=== PATIENT | male | born 1950 | race African-American/Black ===

== ENCOUNTER 2020-04-15 13:03 | Inpatient (IN) | payer OTHER ==
[~2020-04-15] VITALS: Ht 175.3 cm; Wt 68.0 kg
--- NOTE | ~2020-04-15 | EMS ---
[place] [address] EMS Patient Care Report Name: HANNA PARRA III [id number] Admission: 04/15/20 Attend Phys: Discharge: Date of : 52 Report #: [id number] THIS REPORT FOR: //name// Report Transmitted: 04/15/2020 14:23 EMS Care Summary [place], [place]/[facility] Incident [id number] @ 04/15/2020 12:35 Incident Location [address] [address] Patient HANNA PARRA Male, 69 Years 1950 Patient Address [address] [place] [address] Patient History None Reported, Patient Allergies No known allergies, Patient Medications None Reported, Chief Complaint Dizziness Disposition Transported No Lights/[place] Dispatch Reason Sick Person Transported To [place] [facility] Narrative Initially dispatched with [facility] for a sick person. Upon EMS arrival patient was found sitting on his couch, showing no obvious signs of distress, CAOx4. Patient reports having an onset of dizziness two weeks ago. [place] [address] EMS Patient Care Report Name: HANNA PARRA III Room #: REG DELFINO Osborne#: [id number] Admission: 04/15/20 Attend Phys: Discharge: Date of : 52 Report #: [id number] any pain. Patient stated that he had fallen a couple of times due to the dizziness and that the dizziness has not improved or worsened since onset. Field stroke exam was negative for deficits. Patient was assisted onto the stretcher, secured, and loaded into the ambulance. He was transported to [facility] without incident. Full report was given to RN prior to signing this document. Initial Vitals @12:48P: 72,R: 18,BP: 150/94,Pain: 0/10,GCS: 15,Glucose: 133,SpO2: 100,Revised Trauma: 12, @12:56P: 72,R: 18,BP: 168/98,GCS: 15,SpO2: 98,Revised Trauma: 12, Assessments @12:42MENTAL:No Abnormalities,SKIN:No Abnormalities,HEENT:Head/Face: No Abnormalities,Eyes: No Abnormalities,Neck/Airway: No Abnormalities,LUNG SOUNDS:ABDOMEN:PELVIS//GI:EXTREMITIES:Left Arm: No Abnormalities,Right Arm: No Abnormalities,Left Leg: No Abnormalities,Right Leg: No Abnormalities,PULSE:NEURO:Other, Impression Dizziness Procedures @12:42ALS AssessmentResponse: UnchangedSucceeded Timeline 12:32,Call Received 12:32,Dispatch Notified 12:35,Dispatched 12:35,En Route 12:39,On Scene 12:42,At Patient 12:42,ALS Assessment,Response: UnchangedSucceeded, 12:48,BP: 150/94 M,PULSE: 72,RR: 18 R,SPO2: 100 Ox,ETCO2: ,B,PAIN: 0,GCS: 15, 12:51,Depart Scene 12:56,BP: 168/98 M,PULSE: 72,RR: 18 R,SPO2: 98 Ox,ETCO2: ,BG: ,PAIN: ,GCS: 15, 12:57,At Destination 13:12,Call Closed Disclaimer v1.1 Copyright 2020 [employer] This EMS Care Summary contains data elements from the applicable legal record (which may be displayed differently). It is designed to provide pertinent information for the following purposes: continuity of care, clinical quality, and state data reporting. The complete legal record is available to ED staff [address] [address] EMS Patient Care Report Name: HANNA PARRA [facility] Room #: [facility].Susan#: [id number] Admission: 04/15/20 Attend Phys: Discharge: Date of : 52 Report #: [id number] and administrators of the receiving hospital in ES's Patient Tracker. All data is provided "as is."
[~2020-04-15 13:03] MED LIST: NOHOMEMEDICATIONS
[2020-04-15 13:04] VITALS: BP 129/92
[2020-04-15 13:47] LABS: HEMATOCRIT 41.1 % (42.0-52.0); HEMOGLOBIN 13.8 gm/dL (14.0-18.0); MCH 30.7 pg (26.0-34.0); MCHC 33.5 g/dL (28.0-37.0); MCV 91.6 fL (80.0-100.0); PLATELET COUNT 134 thou/uL (150-400); RBC 4.48 mil/uL (4.50-6.00); RDW 15.4 % (10.5-14.5); WBC 3.6 thou/uL (4.0-11.0)
[2020-04-15 13:59] LABS: ANION GAP 14 mmol/L (7-16); BUN 19 mg/dL (7-18); CALCIUM 8.8 mg/dL (8.5-10.1); CHLORIDE 92 mmol/L (98-107); CO2 23 mmol/L (21-32); GLUCOSE 123 mg/dL (74-106); POTASSIUM 3.2 mmol/L (3.5-5.1); SODIUM 129 mmol/L (136-145)
[2020-04-15 14:09] LABS: ALBUMIN 2.4 g/dL (3.4-5.0); MAGNESIUM 1.6 mg/dL (1.8-2.4); SGOT 70 U/L (15-37); SGPT 47 U/L (30-65); TOTAL BILIRUBIN 0.7 mg/dL (0.2-1.0); TOTAL PROTEIN 6.8 g/dL (6.4-8.2); TROPONIN-I <0.06 ng/mL (<0.06)
[2020-04-15 14:17] LABS: ABSOLUTE NEUTROPHILS 1.7 thou/uL (1.4-8.2); ANISOCYTOSIS 1+
[2020-04-15 17:42] LABS: URINE BLOOD NEGATIVE (Negative); URINE CLARITY CLEAR; URINE COLOR YELLOW; URINE GLUCOSE-RANDOM* NEGATIVE (Negative); URINE KETONES 1+ (Negative); URINE LEUKOCYTES-REFLEX NEGATIVE (Negative); URINE NITRITE-REFLEX NEGATIVE (Negative); URINE PROTEIN (DIPSTICK) TRACE (Negative); URINE SPECIFIC GRAVITY >= 1.030 (1.005-1.035)
[2020-04-15 17:46] LABS: ICTOTEST (BILI CONFIRMATORY) Negative (Negative); URINE BILIRUBIN NEGATIVE (Negative)
[2020-04-15 19:02] LABS: FOLIC ACID 8.4 ng/mL (8.6-58.9)
[2020-04-15 20:27] VITALS: BP 113/58
--- NOTE | 2020-04-15 20:31 | NUR ---
CALLED UNIT TO GIVE REPORT.PHONE RINGING WITH NO ANSWER
[2020-04-15 20:38] VITALS: BP 129/80
[2020-04-15 20:59] VITALS: BP 148/76
--- NOTE | 2020-04-15 22:48 | NUR ---
PATIENT ARRIVED VIA CART WITH RN AT 2044 TO ROOM 455. ALERT AND ORIENTED X4. PATIENT SCOOTED HIMSELF FROM CART TO BED W/O ASSIST. IVF STARTED PER ORDER. NO WOUNDS NOTED. PATIENT STATES HE IS A SMOKER AND WOULD LIKE TO STOP. PATIENT STATES HE DOES DRINK AT TIMES, HOWEVER, THIS INFORMATION CHANGES WITH DIFFERENT QUESTIONS. WILL MONITOR.
--- NOTE | 2020-04-16 03:21 | NUR ---
PATIENT WAS A NEW ADMIT FROM THE ED AT 2044 ON 04/15/2020 TO THIS NURSE. COMPUTER DID NOT REGISTER INFORMATION USUAL. BOTH SUICIDE AND NUTRITION QUESTIONS ANSWERED. REASSESSMENT WAS DONE PER SHIFT INFORMATION, NOT ADMIT FORMAT USUAL DUE TO COMPUTER GLITCH. CHARGE NURSE AND THERMAL INTELLIGENCE ANALYST NOTIFIED. PATIENT UP WITH SBA TO BATHROOM. IVF INFUSING PER ORDER. NO SKIN ISSUES. RESTING QUIETLY AT TIME OF NOTE. WILL MONITOR.
[2020-04-16 03:24] VITALS: BP 161/79
[2020-04-16 06:28] LABS: CALCIUM 8.2 mg/dL (8.5-10.1); CREATININE 0.9 mg/dL (0.7-1.3); MAGNESIUM 1.8 mg/dL (1.8-2.4); POTASSIUM 3.5 mmol/L (3.5-5.1)
[2020-04-16 07:12] VITALS: BP 153/77
[2020-04-16 16:16] VITALS: BP 146/78
--- NOTE | 2020-04-16 19:26 | NUR ---
Assumed pt care at 7am.Pt in bed resting without c/o.Assessment completed.vss. Pt tolerated meds and diet.Family called and updates given.Later this afternoon,drt came and requested to be insurance salesperson per pt approval.Name entered into computer so also designated visitor.No verbal c/o.Will continue to monitor.
[2020-04-16 19:52] VITALS: BP 142/85
--- NOTE | 2020-04-17 02:11 | NUR ---
PATIENT WAS ASLEEP AT SHIFT CHANGE AND THIS NURSE AWAKENED HIM FOR EVENING MEDICATION. HE HAS SLEPT THROUGHOUT THE NIGHT. DENIES PAIN. COOPERATIVE WITH CARE. REMAINS ON TELE WITH SINUS RHYTHM. COVID NEGATIVE FROM TESTING ON AM SHIFT. WILL MONITOR.
[2020-04-17 05:54] LABS: CALCIUM 8.3 mg/dL (8.5-10.1); CREATININE 0.9 mg/dL (0.7-1.3); PHOSPHORUS 2.4 mg/dL (2.5-4.9); POTASSIUM 3.9 mmol/L (3.5-5.1)
[2020-04-17 07:52] VITALS: BP 174/97
[2020-04-17 16:00] VITALS: BP 189/96
[2020-04-17 19:54] VITALS: BP 173/92
[2020-04-18 03:13] VITALS: BP 157/76
[2020-04-18 05:55] LABS: CALCIUM 7.7 mg/dL (8.5-10.1); CREATININE 0.8 mg/dL (0.7-1.3); PHOSPHORUS 2.2 mg/dL (2.5-4.9); POTASSIUM 3.5 mmol/L (3.5-5.1)
[2020-04-18 07:55] VITALS: BP 188/86
--- NOTE | 2020-04-18 08:48 | NUR ---
Assumed pt care at 1900. A/OX4, VSS. Denies pain on assessment. Up with SBA. No anxiety episodes noted. IVF infusing via LUE IV w/o any problems. Fall precautions in place,calls appropriately for help.
[2020-04-18 16:33] VITALS: BP 179/82
--- NOTE | 2020-04-18 17:00 | NUR ---
PT ASSESSED AT START OF SHIFT. SLEEPY THIS AM BUT MORE AWAKE LATER IN DAY. UP TO THE BATHROOM FOR BM THIS AFTERNOON W/ SOME WEAKNESS. EATING AND DRINKING WELL. NO C/O PAIN.
[2020-04-18 19:33] VITALS: BP 187/85
[2020-04-19 06:37] LABS: CALCIUM 8.4 mg/dL (8.5-10.1); CREATININE 0.9 mg/dL (0.7-1.3); POTASSIUM 4.1 mmol/L (3.5-5.1)
[2020-04-19 07:12] VITALS: BP 178/92
--- NOTE | 2020-04-19 07:26 | EKG ---
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 : 1950 Requested By: Tea Tesfaye Order Number: [id number] MD: Onel Antonio Measurements Intervals [place] Rate: 75 P: 78 RI: 46 QRS: 65 QRSD: 83 T: 37 QT: 408 QTc: 456 Interpretive Statements Sinus rhythm Atrial premature complexes Short RI interval Anteroseptal infarct, age indeterminate Baseline wander in lead(s) V3 No previous ECG available for comparison Electronically Signed On 04-19-2020 7:26:36 CDT by Onel Antonio [email or web address] <ELECTRONICALLY SIGNED> By: Onel Antonio MD, FACC 04/19/20 0726 1432 1432 Onel Antonio MD, [facility] /EPI
[2020-04-19] MEDS ORDERED: FOLIC ACID1 MG PO (10:03)
[2020-04-19] MEDS ORDERED: VITAMIN B-1100 M2 PO (10:04)
[2020-04-19] MEDS ORDERED: NORVASC 2.5 MG2.5 M1 PO (10:06)
--- NOTE | 2020-04-19 10:15 | NUR ---
ASSUMED CARE AT 0700. PT IS ALERT AND ORIENTED. VSSA/RA. NSR ON TELE. TOLERATING DIET. PIV INFUSING WITHOUT ISSUES. NO COMPLAINTS AT THIS TIME. FALL PRECAUTIONS IN PLACE. CALL LIGHT IN REACH. WILL CONTINUE TO MONITOR.
[2020-04-19 12:53] VITALS: BP 178/92
--- NOTE | 2020-04-19 13:47 | NUR ---
PT DISCHARGED AT THIS TIME. HE IS ALERT AND ORIENTED AND VERBALIZES UNDERSTANDING OF DC PAPERWORK, NEW MEDICATIONS AND APPROP FOLLOW UP. SCRIPTS GIVEN TO PT WITH COPIES PLACED IN CHART. PIV AND TELE MONITOR REMOVED WITHOUT ISSUES. ACCOMPANIED OUT VIA WHEELCHAIR TO RIDE.
== END 2020-04-19 14:19 | disposition home or self-care (01) | DRG 70 ==
LOC: ER 13:03 → 4W 19:09 → EROBS 19:09 → 4W 20:36
PROVIDERS: Nurse Practitioner Family; ADMIT Hospitalist; ATTEND Hospitalist
DX: G93.40 Encephalopathy, unspecified (principal); E43 Unspecified severe protein-calorie malnutrition; E87.1 Hypo-osmolality and hyponatremia; M62.84 Sarcopenia; F10.20 Alcohol dependence, uncomplicated; R27.0 Ataxia, unspecified; Z60.2 Problems related to living alone; F30.8 Other manic episodes; F17.210 Nicotine dependence, cigarettes, uncomplicated; E87.6 Hypokalemia; Z20.828 Contact with and (suspected) exposure to other viral communicable diseases; E83.42 Hypomagnesemia; Z68.22 Body mass index [BMI] 22.0-22.9, adult; Z79.899 Other long term (current) drug therapy; I10 Essential (primary) hypertension; R29.6 Repeated falls; Y90.9 Presence of alcohol in blood, level not specified
CPT/HCPCS: 10045

== ENCOUNTER 2020-11-16 11:21 | Emergency (ER) | payer OTHER ==
[~2020-11-16] VITALS: Ht 175.3 cm; Wt 68.0 kg
[~2020-11-16 11:21] MED LIST changes: +FOLIC ACID1 MG PO; +NORVASC 2.5 MG2.5 M1 PO; +VITAMIN B-1100 M2 PO
[2020-11-16 11:25] VITALS: BP 103/61
[2020-11-16] MEDS ORDERED: VALTREX1000 MG PO (11:56)
[2020-11-16] MEDS ORDERED: HYDROCODON-ACE1 EAC7 PO (11:56)
== END 2020-11-16 12:16 | disposition home or self-care (01) ==
LOC: ER 11:21
DX: B02.9 Zoster without complications (principal); Z79.899 Other long term (current) drug therapy

== ENCOUNTER 2021-08-22 11:45 | Inpatient (IN) | payer OTHER ==
[~2021-08-22] VITALS: Ht 175.3 cm; Wt 60.3 kg
--- NOTE | ~2021-08-22 | O ---
[facility] [place] [address] OPERATIVE REPORT Name: HANNA PARRA III Room #: 363-P ADM IN M.R.#: [id number] Admission: 08/22/21 Attend Phys: Juan Malave MD Discharge: Date of : 52 Report #: [id number] THIS REPORT FOR: cc: FAM - No family physician/PCP FAM - No family physician/PCP Khalif Alfredo MD ~ DATE OF SERVICE: 08/23/2021 PREOPERATIVE DIAGNOSIS: Perirectal abscess. POSTOPERATIVE DIAGNOSIS: Perirectal abscess. OPERATION: Incision and drainage of ischiorectal abscess. SURGEON: Khalif Alfredo MD ANESTHESIA: General. ESTIMATED BLOOD LOSS: Minimal. SPECIMENS: None. DRAIN: Elizabeth drain. DESCRIPTION OF PROCEDURE: After informed consent was obtained, the patient was brought to the operating room and placed supine. SCDs were placed and working, preoperative antibiotics were administered, general anesthesia was induced. The patient was placed in the dorsal lithotomy position. The area was then prepped and draped in the usual sterile fashion. A timeout was performed. Procedure was then initiated. He had area of fluctuance in the right perianal area. This was approximately 2 cm from the anal verge. There was already an opening. This was extended approximately 1 cm. Pus was expressed and suctioned. There was a large potential space underneath measuring approximately 7 x 6 cm. This tracked anteriorly toward the midline in the perineum. I then made a counterincision measuring 1 cm. The area was then copiously irrigated with normal saline. I placed a [place] drain through these 2 incisions and tied them together with a nylon suture. Sterile dressings were then applied. COMPLICATIONS: None. [facility] [address] [place] [address] OPERATIVE REPORT Name: HANNA PARRA BIANCA Room #: 363-P [facility] IN .R.#: [id number] Admission: 08/22/21 Attend Phys: Juan Malave MD Discharge: Date of : 52 Report #: [id number] DISPOSITION: The patient was taken to recovery in satisfactory condition. By: 0939 [id number] Khalif Alfredo MD /gay
[~2021-08-22 11:45] MED LIST changes: +HYDROCODON-ACE1 EAC7 PO; +VALTREX1000 MG PO
[2021-08-22 12:21] VITALS: BP 156/68
[2021-08-22 13:55] LABS: ABSOLUTE NEUTROPHILS 8.1 thou/uL (1.4-8.2); BASOPHILS 0.2 % (0.0-2.0); EOSINOPHILS 0.4 % (0.0-3.0); HEMATOCRIT 39.7 % (42.0-52.0); HEMOGLOBIN 13.2 gm/dL (14.0-18.0); MCHC 33.3 g/dL (28.0-37.0); MONOCYTES 12.5 % (1.0-8.0); PLATELET COUNT 388 thou/uL (150-400); POLYS 72.9 % (36.0-66.0); RBC 4.56 mil/uL (4.50-6.00); RDW 13.7 % (10.5-14.5); WBC 11.1 thou/uL (4.0-11.0)
[2021-08-22 14:05] LABS: CALCIUM 8.7 mg/dL (8.5-10.1); CREATININE 1.3 mg/dL (0.7-1.3)
[2021-08-22 14:19] LABS: ALBUMIN 1.9 g/dL (3.4-5.0); TOTAL BILIRUBIN 0.6 mg/dL (0.2-1.0); TOTAL PROTEIN 7.1 g/dL (6.4-8.2)
[2021-08-22 19:23] VITALS: BP 126/73
--- NOTE | 2021-08-22 19:42 | NUR ---
PT DAUGHTER PEREZ PARRA [phone]
[2021-08-22 20:36] LABS: MAGNESIUM 2.1 mg/dL (1.8-2.4); PHOSPHORUS 4.7 mg/dL (2.5-4.9)
[2021-08-22 23:44] VITALS: BP 95/51
[2021-08-22 23:57] VITALS: BP 123/80
[2021-08-23] VITALS (11 sets, daily range): BP systolic 110–179; BP diastolic 45–94
--- NOTE | 2021-08-23 02:59 | NUR ---
PT ADMITTED TO RM 363 FROM THE ER AROUND 2350. ALERT AND ORIENTED X4. VSS AFEBRILE. AFIB ON MONITOR RATE CONTROLLED 60-80S. UNLABORED ON RA. SATS WNL, PICTURES OF DRAINING ABCESS SITES TAKEN. 2 SMALL HOLES ON RIGHT CLAUDIA- RECTAL AREA NOTED DRAINING MODERATE AMTS PINK PURULENT DRAINAGE. INSTRUCTED PT ON FALL PRECAUTIONS. PT STATED HIS LAST DRINK WAS 1 WEEK AGO. HE STATED HE ONLY DRINKS 1 BEER PER DAY AND ANTHONY 2X/ WK. NO S/S DT'S NOTED. CONSENT SIGNED FOR i AND D TOMORROW.
[2021-08-23 03:59] LABS: HEMATOCRIT 32.8 % (42.0-52.0); HEMOGLOBIN 11.3 gm/dL (14.0-18.0); MCH 29.8 pg (26.0-34.0); MCHC 34.3 g/dL (28.0-37.0); RBC 3.77 mil/uL (4.50-6.00); RDW 13.6 % (10.5-14.5); WBC 9.8 thou/uL (4.0-11.0)
[2021-08-23 04:14] LABS: CALCIUM 7.5 mg/dL (8.5-10.1); POTASSIUM 3.4 mmol/L (3.5-5.1)
[2021-08-23 07:08] LABS: GLYCOHEMOGLOBIN (HGB A1C) 6.5 % (4.8-5.6)
--- NOTE | 2021-08-23 07:25 | EKG ---
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: ed : 1950 Requested By: Madi Barnes Order Number: [id number] MD: Kin Adam Measurements Intervals [place] Rate: 140 P: OK: QRS: 76 QRSD: 87 T: 67 QT: 319 QTc: 487 Interpretive Statements Atrial fibrillation Consider left ventricular hypertrophy Anterior Q waves, possibly due to LVH Compared to ECG 04/15/2020 14:32:15 Left ventricular hypertrophy now present Q waves now present Sinus rhythm no longer present Atrial premature complex(es) no longer present Short OK interval no longer present Myocardial infarct finding no longer present Electronically Signed On 08-23-2021 7:25:10 [employer] by Kin Adam [email or web address] <ELECTRONICALLY SIGNED> By: Kin Adam MD, FAC 08/23/21 0725 1526 1526 Kin Adam MD, [facility] /EPI
--- NOTE | 2021-08-23 08:53 | NUR ---
PT CONVERTED TO SR WITH PACS. VSS AFEBRILE. NS AT 80 INFUSING BP BETTER TONIGHT. SATS WNL ON RA. NO S/S DTS TONIGHT. CIWA NEGATIVE SO FAR SCORE 0. SIDE RAILS PADDED. PT NPO AFTER MN FOR I&D OF CLAUDIA-RECTAL ABCESS.
--- NOTE | 2021-08-23 09:33 | EKG ---
[place] [address] [address] [facility] [place] [address] ELECTROCARDIOGRAM REPORT Name: HANNA PARRA [facility] Room #: 363-P ADM IN M.R.#: [id number] Admission: 08/22/21 Attend Phys: Juan Malave MD Discharge: Date of : 52 Report #: [id number] [facility] Test Date: 2021-08-23 Test Time: 08:11:54 Pat Name: HANNA PARRA Department: Room: 363 P Gender: M [employer] Superintendent: SANDRA : 1950 Requested By: Katie Márquez Order Number: [id number] : Kin Adam Measurements Intervals [place] Rate: 92 P: 118 [place]: 146 QRS: 75 QRSD: 94 T: 60 QT: 416 QTc: 515 Interpretive Statements Sinus rhythm Ventricular premature complex Consider left ventricular hypertrophy Compared to ECG 08/22/2021 15:26:22 Ventricular premature complex(es) now present Atrial fibrillation no longer present Q waves no longer present Electronically Signed On 08-23-2021 9:33:00 [employer] by Kin Adam [email or web address] <ELECTRONICALLY SIGNED> By: Kin Adam MD, [facility] 08/23/21932 0 0 Kin Adam MD, [facility] /EPI
--- NOTE | 2021-08-23 11:44 | 2DMMODE ---
[facility] [place] [address] 2 D/M-MODE ECHOCARDIOGRAM Name: HANNA PARRA [facility] Room #: 363-P ADM IN M.R.#: [id number] Admission: 08/22/21 Attend Phys: Juan Malave MD Discharge: Date of : 52 Report #: [id number] THIS REPORT FOR: cc: ROSEY - Chel family physician/PCP ROSEY - Chel family physician/PCP Kin Adam MD [facility] ~ APPROVED REPORT Study performed: 08/23/2021 10:45:03 EXAM: Comprehensive 2D, Doppler, and color-flow Echocardiogram Patient Location: Bedside Room #: 363 Status: routine BSA: 1.70 HR: 71 bpm BP: 136/84 mmHg Rhythm: NSR Other Information Study Quality: Good Indications Atrial Fibrillation Dyspnea 2D Dimensions RVDd: 34.92 mm IVSd: 9.68 (7-11mm) LVOT Diam: 20.83 (18-24mm) LVDd: 44.93 mm PWd: 9.95 (7-11mm) Ascending Ao: 31.90 (22-36mm) LVDs: 28.09 (25-40mm) Left Atrium: 32.98 (27-40mm) Aortic Root: 36.68 mm IVC: 18.00 mm Volumes Left Atrial Volume (Systole) Single Plane 4CH: 66.62 mL Single Plane 2CH: 50.47 mL LA ESV Index: 39.00 mL/m2 Aortic Valve AoV Peak Ramin.: 0.90 m/s AO Peak Gr.: 3.21 mmHg LVOT Max P.84 mmHg LVOT Max V: 0.68 m/s [facility] [address] [address] 2 D/M-MODE ECHOCARDIOGRAM Name: HANNA PARRA III Room #: 363-P [facility] IN Anish.#: [id number] Admission: 08/22/21 Attend Phys: Jaun Malave MD Discharge: Date of : 52 Report #: [id number] ARASELI Vmax: 2.58 cm2 Mitral Valve E/A Ratio: 1.5 MV Decel. Time: 129.35 ms MV E Max Ramin.: 0.77 m/s MV A Ramin.: 0.51 m/s MV PHT: 37.51 ms IVRT: 115.34 ms Pulmonary Valve PV Peak Ramin.: 0.64 m/s PV Peak Gr.: 1.64 mmHg Tricuspid Valve TR Peak Ramin.: 2.64 m/s TR Peak Gr.: 27.83 mmHg PA Pressure: 33.00 mmHg Left Ventricle The left ventricle is normal size. There is normal LV segmental wall motion. There is normal left ventricular wall thickness. Left ventricular systolic function is normal. The left ventricular ejection fraction is within the normal range. LVEF is 55-60%. The left ventricular diastolic function is normal. Right Ventricle The right ventricle is normal size. The right ventricular systolic function is normal. Atria The left atrium size is normal. The right atrium size is normal. Aortic Valve The aortic valve is normal in structure. No aortic regurgitation is present. There is no aortic valvular stenosis. Mitral Valve The mitral valve is normal in structure. Trace mitral regurgitation. No evidence of mitral valve stenosis. Tricuspid Valve The tricuspid valve is normal in structure. There is mild tricuspid regurgitation. Estimated PAP 33 mmHg. There is mild pulmonary hypertension. [facility] [address] [place] [address] 2 D/M-MODE ECHOCARDIOGRAM Name: HANNA PARRA [facility] Room #: 363-P ADM IN M.R.#: [id number] Admission: 08/22/21 Attend Phys: Juan Malave MD Discharge: Date of : 52 Report #: [id number] Pulmonic Valve The pulmonary valve is normal in structure. There is no pulmonic valvular regurgitation. Great Vessels The aortic root is normal in size. IVC is normal in size and collapses >50% with inspiration. Pericardium There is no pericardial effusion. <Conclusion> Normal left atrial size/wall thickness central ejection fraction of 60% Normal right ventricle size/function Normal atrial size Normal aortic valve structure and function Trace mitral valve insufficiency Mild tricuspid valve insufficiency Pulmonary systolic pressure estimated 33 mmHg No pericardial effusion Normal aortic root size <ELECTRONICALLY SIGNED> By: Kin Adam MD, [facility] 08/23/21 1144 1144 1144 Kin Adam MD, [facility] /INF
--- NOTE | 2021-08-23 19:01 | NUR ---
Pt A &O x4. Pt VS stable. PT received medications as ordered. Pt had surgery this shift. PT has dressing in place to buttox noted. This RN had to re enforce dressing. Pt had BM this shift. PT turns self in bed. Pt on CIWA. Pt is room air. PT is able to make needs known
--- NOTE | 2021-08-23 21:55 | NUR ---
PT RESTING IN BED IN THE DARK WITH BLANKET OVER HEAD. FAMILY VISITED. LUNGS CRACKLES. IVF INTACT. PT STATED HE REPOSITIONS SELF. RECTAL DRESSING INTACT. PT DECLINED HS SNACK. BED ALARM ON.
[2021-08-24 04:18] VITALS: BP 177/81
[2021-08-24 05:00] VITALS: BP 167/66
[2021-08-24 06:14] LABS: CALCIUM 7.6 mg/dL (8.5-10.1); CREATININE 0.7 mg/dL (0.7-1.3); POTASSIUM 4.1 mmol/L (3.5-5.1)
[2021-08-24 07:58] VITALS: BP 162/71
[2021-08-24 12:08] VITALS: BP 180/81
--- NOTE | 2021-08-24 13:04 | HC ---
[facility] [place] [address] CONSULTATION Name: AHNNA PARRA III Room #: 363-P ADM IN M.R.#: [id number] Admission: 08/22/21 Attend Phys: Juan Malave MD Discharge: Date of : 52 Report #: [id number] THIS REPORT FOR: cc: FAM - No family physician/PCP FAM - No family physician/PCP Aron Khan MD ~ DATE OF SERVICE: 08/23/2021 INFECTIOUS DISEASE CONSULTATION ATTENDING PHYSICIAN: Dr. Malave. REASON FOR EVALUATION: Perirectal abscess. HISTORY OF PRESENT ILLNESS: Chart reviewed, the patient examined. This is a 71-year-old without ongoing chronic illness except history of ethanol excess. He presented to the Emergency Room with complaints of generalized myalgias, some degree of dyspnea. He had pain associated with the perineal site, noted some drainage. It is not clear if he had any significant fevers or chills. Initial chest x-ray was otherwise unremarkable. ProBNP elevated at 1124, his albumin was 1.9. Lactic acid 2.7, on repeat was 1.4. Procalcitonin of 1.53. Coronavirus testing was negative. CT of the pelvis was done, which showed focal inflammatory thickening and stranding in the peritoneum. There was question of a perirectal abscess. He was seen by surgery and tentatively scheduled to undergo operative debridement; however, was found to be in atrial fibrillation, pending cardiology recommendations. Initial blood cultures collected at the time of admission are sterile thus far. He was empirically placed on combination antibiotics with Flagyl and Zosyn. ALLERGIES: None known. CURRENT MEDICATIONS: Include multivitamins, thiamine, metoprolol, metronidazole, Zosyn, enoxaparin, lorazepam. PAST MEDICAL HISTORY: As described above, may have a degree of underlying COPD, severe malnutrition. SOCIAL HISTORY: Former smoker. Regular ethanol use. No illicit drug use. FAMILY HISTORY: Noncontributory. REVIEW OF SYSTEMS: Otherwise unremarkable. PHYSICAL EXAMINATION: GENERAL: Appears chronically ill and undernourished. He is mildly encephalopathic, mild to moderate distress. [facility] [address] [place] [address] CONSULTATION Name: HANNA PARRA [facility] Room #: 363-P [facility] IN [facility]#: [id number] Admission: 08/22/21 Attend Phys: Juan Malave MD Discharge: Date of : 52 Report #: [id number] VITAL SIGNS: Temperature 97.7, pulse 61, respirations 18, blood pressure 136/84. SKIN: Warm, dry, no rashes. HEENT: Normocephalic. Extraocular muscles intact. NECK: Supple. LUNGS: Diminished breath sounds. HEART: Irregularly irregular. ABDOMEN: Slightly distended, somewhat firm, nontender. EXTREMITIES: No cyanosis. GENITOURINARY AND RECTAL: Deferred. LABORATORY DATA: Cultures sterile thus far. Electrolytes: Sodium 134, potassium 3.4, chloride 99, bicarbonate is 27, anion gap of 8, BUN and creatinine 23 and 1.0. Estimated GFR of 90. CBC 9.8, H and H 11.3 and 13.8, platelets of 319. IMAGING: As noted above. ASSESSMENT AND PLAN: Perirectal abscess. The patient is profoundly malnourished, likely significant ethanol abuse and at least intermittent atrial fibrillation. We will continue empiric antimicrobial therapy. At this point, it is difficult to ascertain whether it is primarily skin related with inside-out progression or more intestinal related. At this point, he is not overtly toxic, although would be concerned about possible withdrawal in this patient. Try to optimize his nutritional status to the extent possible, add incentive spirometry. <ELECTRONICALLY SIGNED> By: Aron Khan MD 08/24/21 1304 0959 1052 Aron Khan MD /nt
[2021-08-24 14:30] VITALS: BP 170/62
--- NOTE | 2021-08-24 14:43 | NUR ---
INITIAL ASSESSMENT: Received consult for discharge planning. PRIETO reviewed chart and spoke with nursing and attending physician. Pt was admitted from home due to perirectal abscess. Pt had I&D yesterday. Pt is on IV abx. Wound care consulted. PRIETO met with pt at bedside. Introduced role of SW. Pt is alert/orientated x 4. Pt reports he lives at home with family. Prior to admission, pt was independent with ADLs. No use of DME. No hx of services or post-acute placement. Pt does not currently have a PCP. Therapy evals ordered today. Plan is for pt to discharge home when medically stable. PRIETO is following to assist as needed with discharge planning.
[2021-08-24 19:09] VITALS: BP 141/64
--- NOTE | 2021-08-25 03:39 | NUR ---
Patient making progress towards outcome goals. Ruma rectal tenderness I and D site still with drain, difficult to keep dressing due to location. Vital signs and rhythm stable. Ruma rectal tenderness, denies need for pain medication. IVfluids infusing. High fall risks, fall precautios in place.
[2021-08-25 04:16] VITALS: BP 167/83
[2021-08-25 07:24] VITALS: BP 123/65
[2021-08-25 12:01] VITALS: BP 157/84
--- NOTE | 2021-08-25 14:36 | NUR ---
SW reviewed chart and spoke with nursing and attending physician. Pt s/p I&D of perirectal abscess. Pt remains on IV abx. Plan is for pt to discharge home when medically stable. SW is following to assist as needed with discharge planning.
[2021-08-25 15:52] VITALS: BP 184/86
--- NOTE | 2021-08-25 17:41 | NUR ---
ASSUMED PATIENT CARE AT 0700. A/O X4. DENIES PAIN. SITZ BATH OFFERED. VSS. SLOWLY TOWARD POC GOALS.
[2021-08-25 20:24] VITALS: BP 155/68
--- NOTE | 2021-08-26 01:51 | NUR ---
ASSESSED AT START OF SHIFT. PT RESTING IN BED. IV INTACT, FLUIDS AND ABX GIVEN. FALL PREC IN PLACE. SITZ BATH TID. RECTAL TUBE INTACT. DENIES NEED FOR PAIN MEDS. WILL CONT TO MONITOR TILL EOS.
[2021-08-26 04:40] VITALS: BP 163/54
[2021-08-26 08:31] VITALS: BP 147/79
--- NOTE | 2021-08-26 10:19 | HC ---
[facility] [place] [address] CONSULTATION Name: HANNA PARRA III Room #: 363-P ADM IN M.Nicole.#: [id number] Admission: 08/22/21 Attend Phys: Juan Malave MD Discharge: Date of : 52 Report #: [id number] THIS REPORT FOR: cc: FAM - No family physician/PCP FAM - No family physician/PCP Cristhian Robles MD ~ DATE OF SERVICE: 08/23/2021 DATE OF EVALUATION: 08/23/2021 CHIEF COMPLAINT: Perirectal abscess. HISTORY OF PRESENT ILLNESS: This is a 71-year-old male patient who was admitted with drainage from a perirectal region. He is felt to have an abscess and is likely to undergo surgical incision and drainage. He is also complaining of some lightheadedness and weakness. Denies significant pain in the abscess area. PAST MEDICAL HISTORY: Positive for significant alcoholism, severe malnutrition, encephalopathy, weakness, recurrent falls, severe malnutrition. SOCIAL HISTORY: Positive for daily alcohol use, is a former cigarette smoker. No significant family medical history. MEDICATIONS: Currently include folic acid, thiamine, amlodipine, valacyclovir, hydrocodone. ALLERGIES: No known drug allergies. REVIEW OF SYSTEMS: CONSTITUTIONAL: Denies fever, chills, weight loss. NEUROLOGICAL: The patient complains of some generalized weakness. Denies focal weakness, numbness or tingling. EYES: The patient denies any visual changes, redness or drainage. ENT: The patient denies earache, nasal drainage, sore throat. CARDIOVASCULAR: The patient denies chest pain, palpitations, diaphoresis. PULMONARY: The patient denies cough, shortness of breath. GASTROINTESTINAL: Denies nausea, diarrhea, abdominal pain. He does complain of some drainage around the perirectal region. Other systems in a 14-point review of systems are negative. PHYSICAL EXAMINATION: VITAL SIGNS: The patient's vital signs at this time include temperature 36.7, pulse 66, respiratory rate of 20, blood pressure 149/72. GENERAL: This is a chronically ill-appearing male patient appears to be in minimal distress. HEENT: Normocephalic. Nose and throat are clear. [facility] [address] [place] [address] CONSULTATION Name: HANNA PARRA [facility] Room #: 363-P [facility] IN M.Nicole.#: [id number] Admission: 08/22/21 Attend Phys: Juan Malave MD Discharge: Date of : 52 Report #: [id number] NECK: Supple. HEART: Irregular without obvious murmur. ABDOMEN: Soft, bowel sounds present. Examination of the perirectal region demonstrates an area of purulent drainage. Minimal tenderness or fluctuance noted. This is more on the right gluteal region. NEUROLOGIC: The patient is alert, does move all 4 extremities spontaneously. LABORATORY DATA: Include white blood cell count 11.1, hemoglobin 13.2. Sodium 132, potassium 4.0, chloride 94, CO2 25, BUN 20, creatinine 1.3, glucose 190, albumin is 1.9. CLINICAL IMPRESSION: 1. Perirectal abscess. 2. Atrial fibrillation with rapid ventricular response with a history of alcohol abuse. 3. Severe protein-calorie malnutrition with albumin 1.9. RECOMMENDATIONS: At this point in time, I do not have recommendations specifically for any topical dressings or packing at this time. He is scheduled for incision and drainage today with Dr. Alfredo or Dr. Valladares. Recommend changing the chucks on the bed as needed. We will see if he has any postoperative wound care needs. Although this may be managed by General Surgery. Continue with nutritional support as much as possible. I appreciate being asked to see him in consultation. <ELECTRONICALLY SIGNED> By: Cristhian Robles MD 08/26/21 [id number] Cristhian Robles MD /nt
--- NOTE | 2021-08-26 12:13 | NUR ---
PRIETO reviewed chart and spoke with nursing and attending physician. Pt has drain in place due to perirectal abscess. Pt is on IV abx. PT/OT ordered. Pt has declined some therapy. No weekend discharge anticipated. PRIETO met with pt at bedside to provide update. Discussed possible discharge needs: Home with HH v. post-acute placement. Pt states he does not want to go to a facility and would be agreeable with HH services. PRIETO left HH provider list in pt's room for review. PRIETO is following to assist as needed with discharge planning.
[2021-08-26 12:34] VITALS: BP 173/95
[2021-08-26 15:40] VITALS: BP 147/69
--- NOTE | 2021-08-26 18:55 | NUR ---
RN ASSUMED PT'S CARE AT 0700AM, PT IS A&OX4, PT IS ON ROOM AIR, PT 'S VS ARE STABLE, PT IS CONTINUING IV ABX AND WOUND CARE , PT CAN TOLERATED SURGICAL WOUND PAIN , PT NEEDS HELP WHEN HE GETS UP TO CHAIR.
[2021-08-26 19:03] VITALS: BP 159/91
[2021-08-26 19:29] VITALS: BP 142/92
[2021-08-27 04:56] VITALS: BP 143/75
--- NOTE | 2021-08-27 05:02 | NUR ---
helped him with the sitz bath tonight. he continues on the iv antibiotics. needs reminding to call for assist, to get out of bed. he did have a bm tonight. he stated that his pain level is only minor, and that he did not want anything for pain relief. he has rested off and on tonight. no discharge concerns voiced.
[2021-08-27 05:41] LABS: ABSOLUTE NEUTROPHILS 2.9 thou/uL (1.4-8.2); BASOPHILS 0.6 % (0.0-2.0); EOSINOPHILS 3.2 % (0.0-3.0); HEMATOCRIT 34.2 % (42.0-52.0); HEMOGLOBIN 11.2 gm/dL (14.0-18.0); LYMPHOCYTES 38.7 % (24.0-44.0); MCH 28.5 pg (26.0-34.0); MCHC 32.8 g/dL (28.0-37.0); PLATELET COUNT 438 thou/uL (150-400); POLYS 47.5 % (36.0-66.0); RBC 3.93 mil/uL (4.50-6.00); RDW 13.9 % (10.5-14.5); WBC 6.1 thou/uL (4.0-11.0)
[2021-08-27 06:11] LABS: ALBUMIN 1.6 g/dL (3.4-5.0); ANION GAP 7 mmol/L (7-16); BUN 14 mg/dL (7-18); CHLORIDE 107 mmol/L (98-107); CO2 26 mmol/L (21-32); GLUCOSE 136 mg/dL (74-106); MAGNESIUM 1.8 mg/dL (1.8-2.4); PHOSPHORUS 3.1 mg/dL (2.6-4.7); POTASSIUM 3.7 mmol/L (3.5-5.1); SGOT 21 U/L (15-37); SGPT 14 U/L (16-63); SODIUM 140 mmol/L (136-145); TOTAL BILIRUBIN < 0.1 mg/dL (0.2-1.0)
[2021-08-27 07:40] VITALS: BP 167/88
[2021-08-27 11:16] VITALS: BP 145/58
[2021-08-27 15:13] VITALS: BP 139/63
--- NOTE | 2021-08-27 16:25 | NUR ---
RN ASSUMED PT'S CARE AT 0700AM, PT IS A&OX4, PT IS CONTINUING IV ABX AND WOUND CARE , PT'S VS ARE STABLE, PT GETS UP TO BSC WITH ASSIST, PT DENIES PAIN AND SOB BY THIS TIME.
[2021-08-27 20:28] VITALS: BP 156/73
[2021-08-28 03:32] VITALS: BP 152/81
[2021-08-28 08:19] VITALS: BP 156/80
[2021-08-28 11:56] VITALS: BP 161/87
[2021-08-28 16:31] VITALS: BP 140/60
--- NOTE | 2021-08-28 18:55 | NUR ---
RN ASSUMED PT'S CARE AT 0700AM, PT IS A&OX4, PT IS CONTINUING IV ABX AND WOUND CARE , PT GETS UP TO CHAIR WITH ASSIST, PT DENIES PAIN AND N/V AT DAY SHIFT.
[2021-08-28 19:23] VITALS: BP 153/83
[2021-08-29] VITALS (7 sets, daily range): BP systolic 139–185; BP diastolic 69–92
--- NOTE | 2021-08-29 00:29 | NUR ---
PT ALERT AND ORIENTED X4. VSS AFEBRILE. NO C/O PAIN. PT PERIRECTAL WOUND WITH DRAIN CESAR. NO S/S DTS. BED ALARM IS ON. SIDERAILS PADDED. NO S/S DISTRESS.
--- NOTE | 2021-08-29 07:50 | NUR ---
PT ALERT AND ORIENTED X4. NOC/O PAIN LAST NIGHT. SITZ BATH SET UP FOR PT. CLAUDIA RECTAL DRAIN DRAINING MOD AMTS LIGHT BROWN DRAINAGE. PROGRESSING SLOWLT TOWARDS D/C GOALS.
[2021-08-29] MEDS ORDERED: AUGMENTIN 875-1 EACH PO ×2 (10:52→16:20)
--- NOTE | 2021-08-29 13:33 | NUR ---
DISCHARGE NOTE: SW reviewed chart and spoke with nursing and attending physician. Pt is medically stable for discharge home today with HH services. SW met with pt at bedside to discuss discharge plan. Pt is agreeable with discharge plan. SW confirmed pt's home address and phone number. Options for HH were provided. No preference voiced. PRIETO notified [facility] of new referral. HH liaison met with pt at bedside. Discharge ppwk faxed to HH. Contact info for HH placed in pt's discharge summary. Pt's family will provide transportation home later today. No additional SW needs identified at this time, but is available to assist should needs arise.
--- NOTE | 2021-08-29 15:41 | NUR ---
CARE ASSUMED THIS AM, PT ALERT AND ORIENTED X4, DENIES ANY PAIN, NAUSEA AND VOMITTING. ON ROOM AIR. SITZ BATH DONE TWICE TODAY. DRAIN IN PLACE. PT GETTING D/C WITH DRAIN WITH HH. IV AND TELE D/C ALL BELONGINGS WITH PT. PT IS AWARE OF APPOINTMENT WITH DR. ARMSTRONG. PT TAKEN DOWN VIA WHEELCHAIR
== END 2021-08-29 15:59 | disposition home health service (06) | DRG 871 ==
LOC: ER 11:45 → 3W 19:11 → EROBS 19:11 → 3W 23:47
PROVIDERS: Internal Medicine; Nurse Practitioner; Nurse Practitioner Family; ADMIT Internal Medicine; ATTEND Internal Medicine
PROC: 0J9B0ZZ Drainage of Perineum Subcutaneous Tissue and Fascia, Open Approach (ICD-10-PCS; principal; 2021-08-23)
DX: A41.9 Sepsis, unspecified organism (principal); E43 Unspecified severe protein-calorie malnutrition; Z68.1 Body mass index [BMI] 19.9 or less, adult; L02.31 Cutaneous abscess of buttock; K61.39 Other ischiorectal abscess; Z20.822 Contact with and (suspected) exposure to COVID-19; Z79.899 Other long term (current) drug therapy; J44.9 Chronic obstructive pulmonary disease, unspecified; F10.10 Alcohol abuse, uncomplicated; D64.9 Anemia, unspecified; Z79.01 Long term (current) use of anticoagulants; E88.09 Other disorders of plasma-protein metabolism, not elsewhere classified; Z71.6 Tobacco abuse counseling; I10 Essential (primary) hypertension; F17.210 Nicotine dependence, cigarettes, uncomplicated; I48.0 Paroxysmal atrial fibrillation
CPT/HCPCS: 10879; 50010; 50101; 50386; 56525; 62110; 62900; 70005